=== PATIENT | male | born 1965 | race Caucasian/White ===

== ENCOUNTER 2022-02-12 12:31 | Emergency (ER) | payer SELFPAY ==
[~2022-02-12] VITALS: Ht 182.9 cm; Wt 81.6 kg
[2022-02-12 12:45] VITALS: BP_SYST 146
[2022-02-12] MEDS ORDERED: BACITRACIN 1 GM OINT TP ONE (13:00)
[2022-02-12] MEDS ORDERED: DIPHTH,PERTUSS(ACELL),TET VAC 0.5 ML VIAL (Tdap) I.M. ONE (13:00)
== END 2022-02-12 13:35 | disposition home or self-care (01) ==
LOC: SED 12:31
DX: S00.81XA Abrasion of other part of head, initial encounter (principal); Z79.899 Other long term (current) drug therapy; W23.0XXA Caught, crushed, jammed, or pinched between moving objects, initial encounter; Y93.89 Activity, other specified; Y92.810 Car as the place of occurrence of the external cause; Y99.8 Other external cause status
CPT/HCPCS: 90715; 99283

== ENCOUNTER 2023-09-21 10:30 | Emergency (ER) | payer BC ==
[~2023-09-21] VITALS: Ht 180.3 cm; Wt 92.5 kg
[2023-09-21 10:30] VITALS: BP_SYST 128; PULSE 102; RESP 20; TEMP 98.7; O2SAT 98
[2023-09-21] MEDS: DIPHTH,PERTUSS(ACELL),TET VAC 0.5 ML VIAL (Tdap) I.M. ONE (11:49)
[2023-09-21] MEDS: AMOXICILLIN/POTASSIUM CLAV 875 MG TABLET PO ONE (11:52)
[2023-09-21] MEDS: ACETAMINOPHEN 325 MG TABLET PO ONE (11:52)
[2023-09-21] MEDS ORDERED: AMOX-423 PO (13:37)
[2023-09-21 14:03] VITALS: BP_SYST 128; PULSE 102; RESP 20; TEMP 98.7; O2SAT 98
== END 2023-09-21 14:00 | disposition home or self-care (01) ==
LOC: SED 10:30
DX: S61.412A Laceration without foreign body of left hand, initial encounter (principal); S61.432A Puncture wound without foreign body of left hand, initial encounter; I10 Essential (primary) hypertension; Z79.899 Other long term (current) drug therapy; W54.0XXA Bitten by dog, initial encounter; Y93.89 Activity, other specified; Y92.89 Other specified places as the place of occurrence of the external cause; Y99.8 Other external cause status
CPT/HCPCS: 90715; 99283